=== PATIENT | female | born 1980 | race Caucasian/White ===

== ENCOUNTER → 2019-01-31 | Outpatient (CLI) | payer OTHER ==
[~2019-01-31] MED LIST: ALPR.25; Allergy Relief10 M1 PO; BIRTH CONTROL PILLS; CEPH500 PO; CETI10 PO; CITA10S PO; Cranberry300 MG PO; ERGO50000 PO; HYDACE5 PO; IBUP600 PO; LEVSOD75 PO; METHI10; METO50ER; Norco 5-325 Ta1 EACH PO; PROM25 PO; PROP50; Prilosec Otc20 MG PO; SPIR25 PO; Synthroid112 MCG PO; TETR250 PO; THYR60 PO; VENL75
[2019-02-01 15:06] LABS: HPV 16 Negative (Negative); HPV 18 Negative (Negative); HPV OTHER HR TYPES Negative (Negative)
== END | disposition home or self-care (01) ==
LOC: LAB SHORT 13:21 → LAB 13:21
PROVIDERS: Obstetrics & Gynecology
DX: Z01.419 Encounter for gynecological examination (general) (routine) without abnormal findings (principal)
CPT/HCPCS: 87624; G0123

== ENCOUNTER → 2019-05-07 | Outpatient (CLI) | payer OTHER ==
[~2019-05-07] MED LIST changes: +ADVIL LIQUI-GE200 MG; +AMETHYST 90-201 EACH PO; +Armour Thyroid90 MG PO; +Loratadine10 MG; +NOVAFERRUM15 MG/1 ML
[2019-05-07 13:22] LABS: BASOPHILS ABSOLUTE AUTO 0.02 K/mm3 (0.00-0.23); BASOPHILS PERCENT AUTO 0 % (0-2); EOSINOPHILS ABSOLUTE AUTO 0.06 K/mm3 (0.00-0.68); EOSINOPHILS PERCENT AUTO 1 % (0-6); Hematocrit 35.5 % (33.0-51.0); Hemoglobin 11.7 g/dL (11.5-16.0); IMMATURE GRAN ABSOLUTE AUTO 0.02 K/mm3 (0.00-0.10); IMMATURE GRAN PERCENT AUTO 0 % (0-1); LYMPHOCYTES ABSOLUTE AUTO 1.83 K/mm3 (0.84-5.20); LYMPHOCYTES PERCENT AUTO 30 % (21-46); MONOCYTES ABSOLUTE AUTO 0.43 K/mm3 (0.16-1.47); MONOCYTES PERCENT AUTO 7 % (4-13); Mean Corpuscular HGB 31.7 pg (26.0-34.0); Mean Corpuscular Volume 96 fL (80-100); Mean Platelet Volume 10.5 fL (9.1-12.4); NEUTROPHILS ABSOLUTE AUTO 3.83 K/mm3 (1.96-9.15); NEUTROPHILS PERCENT AUTO 62 % (41-73); Platelet Count 326 K/mm3 (150-400); RDW Coefficient Variation 14.2 % (11.7-14.2); RDW Standard Deviation 49.8 fL (35.1-46.3); Red Blood Cell Count 3.69 M/mm3 (3.80-5.20); White Blood Cell Count 6.19 K/mm3 (4.00-11.30)
[2019-05-07 13:32] LABS: Alanine Aminotransfer (ALT/SGP 17 U/L (12-78); Albumin, Blood 4.2 g/dL (3.4-5.0); Albumin/Globulin Ratio 1.3 (0.8-1.8); Alk Phos 55 U/L (40-126); Anion Gap 9 mmol/L (6-16); Aspartate Aminotrans (AST/SGOT 14 U/L (12-37); Bilirubin, Total 0.6 mg/dL (0.1-1.0); Blood Urea Nitrogen 10 mg/dL (8-24); Bun/Creatinine Ratio 13.3 (12.0-20.0); CO2, Blood 27 mmol/L (21-32); Calcium, Blood 8.7 mg/dL (8.5-10.1); Chloride, Blood 102 mmol/L (98-108); Creatinine, Blood 0.75 mg/dL (0.40-1.00); Globulin, Blood 3.2 g/dL (2.2-4.0); Glomerular Filtration Rate >60 (60-); Glucose, Blood 95 mg/dL (70-99); Potassium, Blood 4.5 mmol/L (3.5-5.5); Sodium, Blood 138 mmol/L (136-145); Total Protein, Blood 7.4 g/dL (6.4-8.2)
== END | disposition home or self-care (01) ==
LOC: LAB EV 13:15 → LAB SHORT 13:15
PROVIDERS: Physician Assistant
DX: R10.9 Unspecified abdominal pain (principal)
CPT/HCPCS: 80053; 83690; 85025

== ENCOUNTER 2019-05-23 11:04 | Emergency (ER) | payer OTHER ==
[~2019-05-23] VITALS: Ht 162.6 cm; Wt 62.6 kg
[~2019-05-23 11:04] MED LIST changes: -ADVIL LIQUI-GE200 MG; -AMETHYST 90-201 EACH PO; -Armour Thyroid90 MG PO; -Loratadine10 MG; -NOVAFERRUM15 MG/1 ML
[2019-05-23 12:01] LABS: BASOPHILS ABSOLUTE AUTO 0.02 K/mm3 (0.00-0.23); BASOPHILS PERCENT AUTO 0 % (0-2); EOSINOPHILS ABSOLUTE AUTO 0.08 K/mm3 (0.00-0.68); EOSINOPHILS PERCENT AUTO 1 % (0-6); Hematocrit 36.1 % (33.0-51.0); Hemoglobin 11.6 g/dL (11.5-16.0); IMMATURE GRAN ABSOLUTE AUTO 0.01 K/mm3 (0.00-0.10); IMMATURE GRAN PERCENT AUTO 0 % (0-1); LYMPHOCYTES ABSOLUTE AUTO 1.63 K/mm3 (0.84-5.20); LYMPHOCYTES PERCENT AUTO 24 % (21-46); MONOCYTES PERCENT AUTO 6 % (4-13); Mean Corpuscular HGB 30.9 pg (26.0-34.0); Mean Corpuscular HGB Conc 32.1 g/dL (31.5-36.5); Mean Corpuscular Volume 96 fL (80-100); Mean Platelet Volume 10.9 fL (9.1-12.4); NEUTROPHILS ABSOLUTE AUTO 4.67 K/mm3 (1.96-9.15); NEUTROPHILS PERCENT AUTO 69 % (41-73); Platelet Count 310 K/mm3 (150-400); RDW Coefficient Variation 14.5 % (11.7-14.2); RDW Standard Deviation 51.1 fL (35.1-46.3); Red Blood Cell Count 3.75 M/mm3 (3.80-5.20); White Blood Cell Count 6.81 K/mm3 (4.00-11.30)
[2019-05-23 12:11] LABS: Source, Urine Clean Catch
[2019-05-23] MEDS ORDERED: AMETHYST 90-201 EACH PO (12:12)
[2019-05-23] MEDS ORDERED: Armour Thyroid90 MG PO (12:12)
[2019-05-23 12:16] LABS: Bilirubin, Urine Neg (Neg); Blood, Urine 1+ (Neg); Glucose Qualitative, Urine Neg (Neg); Ketones, Urine Neg (Neg); Leukocyte Esterase, Urine Neg (Neg); Nitrite, Urine Neg (Neg); Protein, Urine Neg (Neg); Specific Gravity, Urine 1.015 (1.003-1.022); Urobilinogen, Urine NORM (Normal)
[2019-05-23 12:27] LABS: Appearance, Urine Clear (Clear); Bacteria Not Seen /hpf; Color, Urine Yellow (P-Yellow); Red Blood Cells, Urine 0-2 /hpf (0-2); Squamous Epithelial Cells Not Seen /hpf (Few); White Blood Cells, Urine Not Seen /hpf (0-5)
[2019-05-23 12:28] LABS: Alanine Aminotransfer (ALT/SGP 16 U/L (12-78); Albumin, Blood 3.9 g/dL (3.4-5.0); Albumin/Globulin Ratio 1.1 (0.8-1.8); Alk Phos 55 U/L (50-136); Anion Gap 7 mmol/L (6-16); Aspartate Aminotrans (AST/SGOT 9 U/L (12-37); Bilirubin, Total 0.4 mg/dL (0.1-1.0); Blood Urea Nitrogen 11 mg/dL (8-24); Bun/Creatinine Ratio 13.5 (12.0-20.0); CO2, Blood 26 mmol/L (21-32); Calcium, Blood 8.5 mg/dL (8.5-10.1); Chloride, Blood 109 mmol/L (98-108); Creatinine, Blood 0.82 mg/dL (0.40-1.00); Globulin, Blood 3.6 g/dL (2.2-4.0); Glomerular Filtration Rate >60 (60-); Glucose, Blood 93 mg/dL (70-99); Potassium, Blood 4.1 mmol/L (3.5-5.5); Sodium, Blood 142 mmol/L (136-145); Total Protein, Blood 7.5 g/dL (6.4-8.2)
== END 2019-05-23 14:03 | disposition home or self-care (01) ==
LOC: ER 11:04
PROVIDERS: Emergency Medicine
DX: R10.11 Right upper quadrant pain (principal); E03.9 Hypothyroidism, unspecified; Z87.891 Personal history of nicotine dependence; Z87.442 Personal history of urinary calculi; Z88.0 Allergy status to penicillin; Z91.041 Radiographic dye allergy status; Z91.048 Other nonmedicinal substance allergy status; Z79.899 Other long term (current) drug therapy
CPT/HCPCS: 36415; 80053; 81001; 81025; 83690; 85025; 99283

== ENCOUNTER 2019-06-21 12:01 | Day surgery (SDC) | payer OTHER ==
[~2019-06-21] VITALS: Ht 162.6 cm; Wt 60.8 kg
[~2019-06-21 12:01] MED LIST changes: +AMETHYST 90-201 EACH PO; +Armour Thyroid90 MG PO
[2019-06-21] MEDS ORDERED: ADVIL LIQUI-GE200 MG (12:15)
[2019-06-21] MEDS ORDERED: Loratadine10 MG (12:19)
[2019-06-21] MEDS ORDERED: NOVAFERRUM15 MG/1 ML (12:19)
== END 2019-06-21 14:58 | disposition home or self-care (01) ==
LOC: ORSCSDS 12:01
PROVIDERS: Internal Medicine Gastroenterology
PROC: 0DJD8ZZ Inspection of Lower Intestinal Tract, Via Natural or Artificial Opening Endoscopic (ICD-10-PCS; principal; 2019-06-21 13:15)
DX: K62.5 Hemorrhage of anus and rectum (principal); R10.9 Unspecified abdominal pain; K64.8 Other hemorrhoids; K64.4 Residual hemorrhoidal skin tags; E03.9 Hypothyroidism, unspecified; F41.9 Anxiety disorder, unspecified; Z87.891 Personal history of nicotine dependence; Z79.899 Other long term (current) drug therapy
CPT/HCPCS: J2704; J7120

== ENCOUNTER 2019-07-05 07:12 | Day surgery (SDC) | payer OTHER ==
[~2019-07-05] VITALS: Ht 162.6 cm; Wt 61.6 kg
[~2019-07-05 07:12] MED LIST changes: +ADVIL LIQUI-GE200 MG; +Loratadine10 MG; +NOVAFERRUM15 MG/1 ML
== END 2019-07-05 08:48 | disposition home or self-care (01) ==
LOC: ORSCSDS 07:12
PROVIDERS: Internal Medicine Gastroenterology
PROC: 0DB98ZX Excision of Duodenum, Via Natural or Artificial Opening Endoscopic, Diagnostic (ICD-10-PCS; principal; 2019-07-05 08:15)
PROC: 0DB68ZX Excision of Stomach, Via Natural or Artificial Opening Endoscopic, Diagnostic (ICD-10-PCS; principal; 2019-07-05 08:15)
DX: R10.11 Right upper quadrant pain (principal); K29.80 Duodenitis without bleeding; R10.13 Epigastric pain; K92.1 Melena; E03.9 Hypothyroidism, unspecified; Z87.891 Personal history of nicotine dependence
CPT/HCPCS: 88305; 88342; J0330; J0461; J2405; J2704; J7120

== ENCOUNTER → 2019-10-14 | Outpatient (CLI) | payer OTHER ==
[2019-10-16 18:06] LABS: CHLAMYDIA TRACHOMATIS, NAA Negative (Negative); NEISSERIA GONORRHOEAE, NAA Negative (Negative)
== END | disposition home or self-care (01) ==
LOC: LAB SHORT 10:34 → LAB 10:34
PROVIDERS: Advanced Practice Midwife
DX: Z30.9 Encounter for contraceptive management, unspecified (principal)
CPT/HCPCS: 87491; 87591

== ENCOUNTER → 2019-11-25 | Outpatient (CLI) | payer OTHER ==
[2019-11-26 11:24] LABS: Candida species (DNA Probe) Negative (NEGATIVE); G. vaginalis (DNA Probe) Negative (NEGATIVE); T. vaginalis (DNA Probe) Negative (NEGATIVE)
== END | disposition home or self-care (01) ==
LOC: LAB 09:34 → LAB SHORT 09:34
PROVIDERS: Advanced Practice Midwife
DX: R10.2 Pelvic and perineal pain (principal)
CPT/HCPCS: 87480; 87510; 87660

== ENCOUNTER → 2020-05-19 | Outpatient (CLI) | payer OTHER ==
[2020-05-19 13:42] LABS: Source, Urine Clean Catch
[2020-05-19 14:30] LABS: Bacteria Rare /hpf; Red Blood Cells, Urine Rare /hpf (0-2); Squamous Epithelial Cells Rare /hpf (Few); White Blood Cells, Urine Not Seen /hpf (0-5)
[2020-05-20 06:49] LABS: Candida species (DNA Probe) Negative (NEGATIVE); G. vaginalis (DNA Probe) Negative (NEGATIVE); T. vaginalis (DNA Probe) Negative (NEGATIVE)
== END | disposition home or self-care (01) ==
LOC: LAB 11:35 → LAB SHORT 11:35
PROVIDERS: Advanced Practice Midwife
DX: M54.5 Low back pain (principal); N89.8 Other specified noninflammatory disorders of vagina
CPT/HCPCS: 81015; 87086; 87480; 87510; 87660

== ENCOUNTER → 2020-12-17 | Outpatient (CLI) | payer OTHER ==
[2020-12-18 09:30] LABS: Candida species (DNA Probe) Negative (NEGATIVE); G. vaginalis (DNA Probe) Negative (NEGATIVE); T. vaginalis (DNA Probe) Negative (NEGATIVE)
[2020-12-18 15:11] LABS: HPV 16 Negative (Negative); HPV 18 Negative (Negative); HPV OTHER HR TYPES Negative (Negative)
== END | disposition home or self-care (01) ==
LOC: LAB SHORT 11:46 → LAB 11:46
PROVIDERS: Advanced Practice Midwife
DX: Z01.419 Encounter for gynecological examination (general) (routine) without abnormal findings (principal); N76.0 Acute vaginitis
CPT/HCPCS: 87480; 87510; 87624; 87660; G0123

== ENCOUNTER 2023-05-27 16:25 | Emergency (ER) | payer OTHER ==
[~2023-05-27] VITALS: Ht 162.6 cm; Wt 90.7 kg
[2023-05-27 16:53] LABS: BASOPHILS ABSOLUTE AUTO 0.05 K/mm3 (0.00-0.23); BASOPHILS PERCENT AUTO 0 % (0-2); EOSINOPHILS ABSOLUTE AUTO 0.22 K/mm3 (0.00-0.68); EOSINOPHILS PERCENT AUTO 2 % (0-6); Hematocrit 40.9 % (33.0-51.0); Hemoglobin 13.8 g/dL (11.5-16.0); IMMATURE GRAN ABSOLUTE AUTO 0.03 K/mm3 (0.00-0.10); IMMATURE GRAN PERCENT AUTO 0 % (0-1); LYMPHOCYTES ABSOLUTE AUTO 3.25 K/mm3 (0.84-5.20); LYMPHOCYTES PERCENT AUTO 28 % (21-46); MONOCYTES ABSOLUTE AUTO 0.73 K/mm3 (0.16-1.47); MONOCYTES PERCENT AUTO 6 % (4-13); Mean Corpuscular HGB 32.2 pg (26.0-34.0); Mean Corpuscular HGB Conc 33.7 g/dL (31.5-36.5); Mean Corpuscular Volume 95 fL (80-100); Mean Platelet Volume 9.9 fL (9.1-12.4); NEUTROPHILS ABSOLUTE AUTO 7.44 K/mm3 (1.96-9.15); NEUTROPHILS PERCENT AUTO 64 % (41-73); Platelet Count 462 K/mm3 (150-400); RDW Standard Deviation 45.4 fL (35.1-46.3); Red Blood Cell Count 4.29 M/mm3 (3.80-5.20); White Blood Cell Count 11.72 K/mm3 (4.00-11.30)
[2023-05-27 17:23] LABS: Albumin, Blood 3.8 g/dL (3.4-5.0); Albumin/Globulin Ratio 0.9 (0.8-1.8); Bilirubin, Total 0.3 mg/dL (0.1-1.0); Bun/Creatinine Ratio 19.9 (12.0-20.0); Creatinine, Blood 0.7 mg/dL (0.40-1.00); Globulin, Blood 4.2 g/dL (2.2-4.0); Potassium, Blood 4.3 mmol/L (3.5-5.5)
[2023-05-27] MEDS ORDERED: EUTHYROX50 MCG PO (17:24)
[2023-05-27 18:30] VITALS: BP 120/86
== END 2023-05-27 19:17 | disposition home or self-care (01) ==
LOC: ER 16:25
PROVIDERS: Physician Assistant
DX: R53.83 Other fatigue (principal); R07.89 Other chest pain; E03.9 Hypothyroidism, unspecified; Z88.0 Allergy status to penicillin; Z88.8 Allergy status to other drugs, medicaments and biological substances; Z91.041 Radiographic dye allergy status; Z79.890 Hormone replacement therapy; Z79.899 Other long term (current) drug therapy; Z87.891 Personal history of nicotine dependence
CPT/HCPCS: 71046; 80053; 84484; 85025; 85379; 93005; 93010; 94640; 94664; 99285-25